=== PATIENT | female | born 1975 | race Caucasian/White ===

== ENCOUNTER → 2017-08-15 | Outpatient (CLI) | payer BC ==
[~2017-08-15] MED LIST: ACET-1256; PRENTAB26; TUMS
--- NOTE | 2017-08-15 10:27 | DIAGNOSTIC IMAGING REPORT ---
PELVIC COMPLETE NON OB CLINICAL HISTORY: Pelvic pain PAIN COMPARISON STUDY: None FINDINGS: The uterus measured 10.0 cm. The endometrial stripe measured 1.7 cm. The right ovary measured 2.8 cm with normal vascular flow. The left ovary measured 2.9 cm with normal vascular flow. 2.3 cm cyst.. There is no ultrasonographic evidence of ovarian torsion. It should be noted that ovarian torsion can be present with normal Doppler ultrasonographic findings. There was no evidence of pathologic free pelvic fluid. IMPRESSION: 1. Abnormal thickening of the endometrium primarily at the uterine fundal region at 1.7 cm. 2. Diagnostic considerations include endometrial hyperplasia versus neoplasia. 3. 2.3 cm left ovarian cyst. The above report was generated using voice recognition software. It may contain grammatical, syntax or spelling errors. Electronically signed by: Zach Valdes M.D. 08/15/2017 10:26 AM Dictated Date/Time: 08/15/2017 10:25 AM
--- NOTE | 2017-08-15 10:29 | DIAGNOSTIC IMAGING REPORT ---
ABDOMEN COMPLETE (US) CLINICAL HISTORY: 42 years-old Female with R10.84, R14.0, R19.4. Acute generalized abdominal pain with abdominal distention COMPARISON: Pelvic ultrasound of same day TECHNIQUE: Multiple real time sonographic images of the abdomen were obtained assessing parsons-scale appearance. FINDINGS: PANCREAS: The pancreas is partially obscured by bowel gas. The visualized portions of the pancreas are normal without focal lesion or pancreatic duct dilatation. LIVER: The liver demonstrates a homogeneous parenchymal echotexture. There is no intrahepatic bile duct dilation, focal lesion, or contour nodularity. There is no ascites. GALLBLADDER: The gallbladder is fluid-filled without cholelithiasis, wall thickening, or pericholecystic fluid. Negative sonographic Mota's sign. The common bile duct measures 0.3 cm. RIGHT KIDNEY: The right kidney measures 11.3 cm. The parenchymal echotexture and cortical thickness are normal. No nephrolithiasis or hydronephrosis. Mild prominence of the renal collecting system is likely physiologic. LEFT KIDNEY: The left kidney measures 12.2 cm. The parenchymal echotexture and cortical thickness are normal. No nephrolithiasis or hydronephrosis. SPLEEN: The spleen measures 9.6 cm and is normal in echotexture. No focal lesions are identified. VASCULATURE: The visualized aorta and inferior vena cava are sub-visualized although appear normal as seen. IMPRESSION: Unremarkable abdominal ultrasound. The above report was generated using voice recognition software. It may contain grammatical, syntax or spelling errors. Electronically signed by: Max Lombardo M.D. 08/15/2017 10:27 AM Dictated Date/Time: 08/15/2017 10:24 AM
== END | disposition home or self-care (01) ==
LOC: C.ULTR 08:53
PROVIDERS: ATTEND Physician Assistant
DX: N83.202 Unspecified ovarian cyst, left side (principal); R10.84 Generalized abdominal pain; R14.0 Abdominal distension (gaseous); R19.4 Change in bowel habit

== ENCOUNTER → 2017-08-27 | Outpatient (CLI) | payer BC | END | disposition home or self-care (01) | LOC: C.RDSM 11:31 | PROVIDERS: ATTEND Family Medicine Sports Medicine | DX: M25.511 Pain in right shoulder (principal) ==